=== PATIENT | female | born 1995 | race Caucasian/White ===

== ENCOUNTER → 2017-12-01 | Outpatient (CLI) | payer BC, OTHER ==
[~2017-12-01] MED LIST: ASPI-86 PO; AUGMENTIN; AUGMENTIN PO; CARV25TA PO; CEPH500C PO; FEXO-14 PO; FURO20TA4 PO; HYDR1CAP2 PO; IOHEXOL 350 MG/ML 100 ML (OMNIPAQUE 350) VIAL IV ONE; KRIL1CAP PO; LISI10TA2 PO; LORA0.5T PO; NS 250 ML (IVPB) BAG IV ONE
--- NOTE | 2017-12-01 13:56 | Diagnostic Imaging Report ---
PROCEDURE: CT chest with contrast only. TECHNIQUE: Multiple contiguous axial images were obtained through the chest after administration of intravenous contrast. INDICATION: Bronchiectasis, fluid in lung. COMPARISON: None. FINDINGS: Heart size is enlarged. There is rather prominent disproportionate left ventricular and to lesser degree left atrial enlargement. Patient is post sternotomy as well as some surgical changes at the level of the mitral valve. Left-sided AICD is present. This includes lead coursing over the posteroinferior ventricular apex superimposed over the diaphragm and within soft tissues of the left chest wall. No suggestion for pathologically enlarged mediastinal or hilar lymph nodes. No significant pericardial effusion. Small hiatal hernia. Lung rojas demonstrate no consolidating infiltrate. Emphysematous changes are present. Mild areas of peribronchial thickening are noted. No significant bronchiectatic change. No significant pleural effusion. Probable splenule anterior to the spleen in the left upper quadrant. Some degree of hepatic steatosis not excluded. The visualized osseous structures demonstrate no acute findings. IMPRESSION: 1. Negative for acute abnormality of the chest. 2. Cardiac enlargement with somewhat disproportionate left-sided chamber enlargement. 3. Emphysematous changes suggested about the lung parenchyma, prominent for the patient's age. If further assessment is desired, pulmonary function testing may be of additional benefit. Dictated by: Dictated on workstation # [id number]
== END ==
LOC: RAD 11:04
PROVIDERS: ATTEND Internal Medicine
DX: J43.9 Emphysema, unspecified (principal); I51.7 Cardiomegaly; J47.9 Bronchiectasis, uncomplicated
CPT/HCPCS: 71260

== ENCOUNTER → 2017-12-11 | Outpatient (CLI) | payer BC, OTHER ==
[~2017-12-11] MED LIST changes: -IOHEXOL 350 MG/ML 100 ML (OMNIPAQUE 350) VIAL IV ONE; -NS 250 ML (IVPB) BAG IV ONE; +RT-ALBUTEROL SULF 2.5 MG/3 ML PRE-MIX VIAL INH ONE
== END ==
LOC: RT 11:38
PROVIDERS: ATTEND Internal Medicine
DX: J40 Bronchitis, not specified as acute or chronic (principal); J42 Unspecified chronic bronchitis
CPT/HCPCS: 94060; 94726; 94729

== ENCOUNTER → 2018-01-09 | Outpatient (CLI) | payer OTHER ==
[~2018-01-09] MED LIST changes: -RT-ALBUTEROL SULF 2.5 MG/3 ML PRE-MIX VIAL INH ONE
[2018-01-09 12:04] LABS: ABG BASE EXCESS -1.7 MMOL/L (-2.5-2.5); ABG OXYGEN SATURATION 99 % (94-100); ABG PCO2 33 MMHG (35-45); ABG PH 7.44 (7.37-7.43); ABG PO2 107 MMHG (79-93); ALLENS TEST YES-POS; INSPIRED O2 ROOM AIR; PATIENT TEMP 98.1; VENTILATOR NO
== END ==
LOC: RT 11:25
PROVIDERS: ATTEND Nurse Practitioner Family
DX: J40 Bronchitis, not specified as acute or chronic (principal); I42.9 Cardiomyopathy, unspecified; F12.90 Cannabis use, unspecified, uncomplicated; G47.10 Hypersomnia, unspecified
CPT/HCPCS: 82805

== ENCOUNTER → 2018-01-24 | Outpatient (CLI) | payer OTHER ==
[~2018-01-24] MED LIST changes: +RT-ALBUTEROL SULF 2.5 MG/3 ML PRE-MIX VIAL INH ONE
== END ==
LOC: RT 11:36
PROVIDERS: ATTEND Nurse Practitioner Family
DX: J40 Bronchitis, not specified as acute or chronic (principal); I42.9 Cardiomyopathy, unspecified; F12.90 Cannabis use, unspecified, uncomplicated; G47.10 Hypersomnia, unspecified; R94.2 Abnormal results of pulmonary function studies
CPT/HCPCS: 94060; 94726; 94729

== ENCOUNTER 2018-02-03 21:00 | Outpatient (CLI) | payer OTHER ==
[~2018-02-03 21:00] MED LIST changes: -RT-ALBUTEROL SULF 2.5 MG/3 ML PRE-MIX VIAL INH ONE
== END 2018-02-04 06:40 | disposition home or self-care (01) ==
LOC: SLEEP 21:00
PROVIDERS: ATTEND Nurse Practitioner Family
DX: G47.10 Hypersomnia, unspecified (principal); R94.2 Abnormal results of pulmonary function studies; F12.90 Cannabis use, unspecified, uncomplicated; I42.9 Cardiomyopathy, unspecified; J40 Bronchitis, not specified as acute or chronic
CPT/HCPCS: 95810

== ENCOUNTER 2018-03-05 08:14 | Outpatient (RCR) | payer OTHER ==
[~2018-03-05] VITALS: Ht 160 cm; Wt 95.3 kg
[2018-03-05 08:22] VITALS: BP 118/55
--- NOTE | 2018-03-05 09:53 | Pulmonary Rehab Eval/Txmt Plan ---
Pulmonary Rehab Initial Eval Information Paper Evaluation Completed: No Pulmonary Rehab Treatment Plan Treatment P Treatment Periord: Initial Diagnosis Diagnosis: RLD Date: Mar 05, 2018 Barriers to Learning Barriers: None Assessment/Problems Exercise: Deconditioning, No Regular Exercise, Sedentary Type: AEROBIC Frequency: 2 X'S PER WEEK Duration: 1 HR CLASS; EXERCISE PER PT'S TOLERANCE Barriers to Exercise: UPPER BACK PAIN Initial MET Level: 2 Aerobic Exercise/Goals Freq: time per week minus [place]: 2 MET Level=: 2 Type: Arm Ergometry, Bike, Scifi/Nustep, Treadmill ALIYAH SPANN DO Mar 05, 2018 09:53
== END 2018-06-03 | disposition home or self-care (01) ==
LOC: PULM 08:14
PROVIDERS: ATTEND Nurse Practitioner Family
DX: J40 Bronchitis, not specified as acute or chronic (principal); R94.2 Abnormal results of pulmonary function studies; I42.9 Cardiomyopathy, unspecified; G47.10 Hypersomnia, unspecified

== ENCOUNTER → 2018-07-09 | Outpatient (CLI) | payer MEDICARE ==
[2018-07-09 15:59] LABS: HEMOGLOBIN 14.7 G/DL (11.5-16.0); MEAN PLATELET VOLUME 10.3 FL (7.4-10.4); RED CELL DISTRIBUTION WIDTH 12.2 % (10.0-14.5); WHITE BLOOD COUNT 10.5 10^3/uL (4.3-11.0)
[2018-07-09 16:19] LABS: ALANINE AMINOTRANSFERASE 39 U/L (0-55); ALBUMIN 4.3 GM/DL (3.2-4.5); ALKALINE PHOSPHATASE 63 U/L (40-136); BILIRUBIN,TOTAL 0.4 MG/DL (0.1-1.0); BUN/CREATININE RATIO 20; CALCIUM 9.7 MG/DL (8.5-10.1); CARBON DIOXIDE 18 MMOL/L (21-32); CHLORIDE 109 MMOL/L (98-107); CREATININE SERUM 0.87 MG/DL (0.60-1.30); GFR ESTIMATED > 60; GLUCOSE 86 MG/DL (70-105); SODIUM 139 MMOL/L (135-145); TOTAL PROTEIN 7.5 GM/DL (6.4-8.2)
--- NOTE | 2018-07-09 18:43 | Diagnostic Imaging Report ---
INDICATION: Pneumonia. EXAMINATION: PA view of the chest is obtained with comparison made to study of 09/05/2015. FINDINGS: Surgical changes in the mediastinum have remained stable. There has been exchange of left anterior chest wall pacemaker/defibrillator device. There is no evidence of pneumothorax. There is mild blunting of left costophrenic sulcus which could be due to pleural fluid or scarring. IMPRESSION: No evidence of complication from exchange of internal cardiac device. There is mild left pleural fluid or thickening. Dictated by: Dictated on workstation # [id number]
== END ==
LOC: RAD 15:40
PROVIDERS: ATTEND Internal Medicine
DX: J18.9 Pneumonia, unspecified organism (principal); Z98.890 Other specified postprocedural states
CPT/HCPCS: 36415; 71045; 80053; 85027; 85652; 86738

== ENCOUNTER → 2020-03-05 | Outpatient (CLI) | payer MEDICARE ==
--- NOTE | 2020-03-05 14:40 | Diagnostic Imaging Report ---
INDICATION: Shortness of breath, cardiomyopathy. COMPARISON: 07/09/2018. TECHNIQUE: 2 radiographs of the chest dated March 05, 2020. FINDINGS: Postsurgical changes of a median sternotomy and prosthetic cardiac valve are again identified. Pacer device is again identified with the battery pack overlying the left chest, appearing similar to the prior examination. The cardiac silhouette is enlarged, though stable from the prior exam. Mild central pulmonary vascular congestion. Mild perihilar opacities, right greater than left, are present. No significant pleural effusion. No pneumothorax. No acute osseous abnormality. IMPRESSION: 1. Persistent cardiomegaly with minimal central pulmonary vascular congestion. 2. Mild perihilar edema versus infiltrate. 3. Stable postsurgical changes. Dictated by: Dictated on workstation # [id number]
== END ==
LOC: RAD 13:51
PROVIDERS: ATTEND Nurse Practitioner Family
DX: I51.7 Cardiomegaly (principal); J98.4 Other disorders of lung; I42.9 Cardiomyopathy, unspecified; Z98.890 Other specified postprocedural states
CPT/HCPCS: 71046

== ENCOUNTER 2020-05-25 16:25 | Outpatient (RCR) | payer MEDICARE ==
[2020-05-25 16:53] LABS: HEMOGLOBIN 12.8 g/dL (11.5-16.0); MEAN PLATELET VOLUME 11.2 fL (9.0-12.2); WHITE BLOOD COUNT 5.6 10^3/uL (4.3-11.0)
[2020-05-25 17:13] LABS: ALANINE AMINOTRANSFERASE 32 U/L (0-55); ALBUMIN 4.1 GM/DL (3.2-4.5); ALKALINE PHOSPHATASE 55 U/L (40-136); BILIRUBIN,TOTAL 0.6 MG/DL (0.1-1.0); BUN/CREATININE RATIO 11; CALCIUM 8.6 MG/DL (8.5-10.1); CARBON DIOXIDE 21 MMOL/L (21-32); CHLORIDE 109 MMOL/L (98-107); CREATININE SERUM 1.05 MG/DL (0.60-1.30); GFR ESTIMATED > 60; GLUCOSE 116 MG/DL (70-105); POTASSIUM 3.5 MMOL/L (3.6-5.0); SODIUM 142 MMOL/L (135-145); TOTAL PROTEIN 6.8 GM/DL (6.4-8.2)
--- NOTE | 2020-05-25 17:19 | Diagnostic Imaging Report ---
EXAMINATION: Chest 2 view HISTORY: Pneumonia COMPARISON: 01/03/2021 FINDINGS: Left subclavian pacemaker is present. Median sternotomy wires are aligned. Mitral annuloplasty ring is present. Heart is mildly enlarged. No pleural effusion or pneumothorax. No edema or pneumonia. IMPRESSION: 1. Mildly enlarged heart, clear lungs. Dictated by: Dictated on workstation # [id number]
== END 2020-08-23 | disposition home or self-care (01) ==
LOC: RAD 16:25 → EDSTATUS 16:30 → RAD 16:30
PROVIDERS: ATTEND Nurse Practitioner Family
DX: J15.9 Unspecified bacterial pneumonia (principal); I51.7 Cardiomegaly
CPT/HCPCS: 36415; 71046; 80053; 83880; 85027; 86738; 87070; 87205

== ENCOUNTER → 2020-07-15 | Outpatient (CLI) | payer MEDICARE ==
[2020-07-15 14:32] LABS: BASOPHILS % (AUTO) 1 % (0-10); EOSINOPHILS # (AUTO) 0.2 10^3/uL (0.0-0.3); EOSINOPHILS % (AUTO) 2 % (0-10); HEMATOCRIT 37 % (35-52); HEMOGLOBIN 12.4 g/dL (11.5-16.0); LYMPHOCYTES # (AUTO) 1.4 X 10^3 (1.0-4.0); LYMPHOCYTES % (AUTO) 17 % (12-44); MEAN CORPUSCULAR HEMOGLOBIN 30 pg (25-34); MEAN CORPUSCULAR HGB CONC 33 g/dL (32-36); MEAN CORPUSCULAR VOLUME 91 fL (80-99); MEAN PLATELET VOLUME 9.9 fL (9.0-12.2); MONOCYTES # (AUTO) 0.4 X 10^3 (0.0-1.0); MONOCYTES % (AUTO) 5 % (0-12); NEUTROPHILS # (AUTO) 6.2 X 10^3 (1.8-7.8); NEUTROPHILS % (AUTO) 75 % (42-75); PLATELET COUNT 254 10^3/uL (130-400); WHITE BLOOD COUNT 8.2 10^3/uL (4.3-11.0)
[2020-07-15 14:44] LABS: ALBUMIN 4.2 GM/DL (3.2-4.5)
[2020-07-15 14:45] LABS: CHLORIDE 106 MMOL/L (98-107); POTASSIUM 4.2 MMOL/L (3.6-5.0); SODIUM 140 MMOL/L (135-145)
[2020-07-15 14:46] LABS: CALCIUM 9.4 MG/DL (8.5-10.1)
[2020-07-15 14:47] LABS: GLUCOSE 87 MG/DL (70-105); TOTAL PROTEIN 6.8 GM/DL (6.4-8.2)
[2020-07-15 14:48] LABS: CARBON DIOXIDE 25 MMOL/L (21-32)
[2020-07-15 14:49] LABS: BILIRUBIN,TOTAL 1.5 MG/DL (0.1-1.0)
[2020-07-15 14:50] LABS: ALKALINE PHOSPHATASE 52 U/L (40-136)
[2020-07-15 14:51] LABS: CREATININE SERUM 1.04 MG/DL (0.60-1.30); GFR ESTIMATED > 60
[2020-07-15 14:52] LABS: BUN/CREATININE RATIO 13
--- NOTE | 2020-07-15 14:52 | Diagnostic Imaging Report ---
INDICATION: Aspiration pneumonia. TIME OF EXAM: 2:35 PM. COMPARISON: Correlation is made with the prior chest from 05/25/2020. FINDINGS: The heart is enlarged. There are changes of median sternotomy. A cardiac defibrillator is in place. No infiltrates are detected. The lungs appear clear. There is no effusion or pneumothorax. IMPRESSION: No acute cardiopulmonary process is detected. Dictated by: Dictated on workstation # [id number]
[2020-07-15 14:53] LABS: ALANINE AMINOTRANSFERASE 25 U/L (0-55)
[2020-07-15 14:57] LABS: ERYTHROCYTE SEDIMENTATION RATE 19 MM/HR (0-20)
== END ==
LOC: RAD 14:05
PROVIDERS: ATTEND Nurse Practitioner Family
DX: J69.0 Pneumonitis due to inhalation of food and vomit (principal); I42.0 Dilated cardiomyopathy
CPT/HCPCS: 36415; 71046; 80053; 83880; 85025; 85379; 85652

== ENCOUNTER → 2023-01-10 | Outpatient (CLI) | payer MEDICARE, OTHER ==
--- NOTE | 2023-01-10 12:12 | Diagnostic Imaging Report ---
INDICATION: CADIOMYOPATHY, DDU COMPARISON: 07/15/2020 FINDINGS: Frontal and lateral views of the chest demonstrate mild cardiomegaly. Pulmonary vasculature is within normal limits. Left-sided AICD, sternotomy wires, postsurgical changes of previous cardiac valve repair are noted.. The lungs are clear. There are no signs of infiltrate, pleural effusions or pneumothoraces. The visualized osseous structures show no acute abnormalities. IMPRESSION: 1. Cardiomegaly, but no evidence of failure or focal infiltrate. Dictated by: Dictated on workstation # [id number]
== END ==
LOC: RAD 10:55
PROVIDERS: ATTEND Family Medicine
DX: I42.9 Cardiomyopathy, unspecified (principal); I51.7 Cardiomegaly
CPT/HCPCS: 71046

== ENCOUNTER → 2023-01-24 | Outpatient (CLI) | payer MEDICARE ==
--- NOTE | 2023-01-24 17:24 | Diagnostic Imaging Report ---
INDICATION: Chest congestion EXAMINATION: Two-view chest 01/24/2023 COMPARISON: 01/10/2023 FINDINGS: There is a pacemaker on left stable with sternotomy wires and heart valve unchanged. Cardiomegaly noted with pulmonary vasculature mildly congested. There are no infiltrates or effusions. No pneumothorax. IMPRESSION: 1. Vascular congestion. Dictated by: Dictated on workstation # [id number]
[2023-01-24 17:54] LABS: BASOPHILS # (AUTO) 0.1 10^3/uL (0.0-0.1); BASOPHILS % (AUTO) 1 % (0-10); EOSINOPHILS # (AUTO) 0.3 10^3/uL (0.0-0.3); EOSINOPHILS % (AUTO) 3 % (0-10); HEMATOCRIT 37 % (35-52); HEMOGLOBIN 12.6 g/dL (11.5-16.0); LYMPHOCYTES # (AUTO) 2.5 10^3/uL (1.0-4.0); LYMPHOCYTES % (AUTO) 25 % (12-44); MEAN CORPUSCULAR HEMOGLOBIN 31 pg (25-34); MEAN CORPUSCULAR HGB CONC 34 g/dL (32-36); MEAN CORPUSCULAR VOLUME 89 fL (80-99); MEAN PLATELET VOLUME 11.3 fL (9.0-12.2); MONOCYTES # (AUTO) 0.5 10^3/uL (0.0-1.0); MONOCYTES % (AUTO) 5 % (0-12); NEUTROPHILS # (AUTO) 6.7 10^3/uL (1.8-7.8); NEUTROPHILS % (AUTO) 67 % (42-75); PLATELET COUNT 288 10^3/uL (130-400); WHITE BLOOD COUNT 10.1 10^3/uL (4.3-11.0)
[2023-01-24 18:17] LABS: ERYTHROCYTE SEDIMENTATION RATE 31 MM/HR (0-20)
== END ==
LOC: RAD 16:57
PROVIDERS: ATTEND Nurse Practitioner Family
DX: J81.0 Acute pulmonary edema (principal)
CPT/HCPCS: 36415; 71046; 85025; 85652; 86738

== ENCOUNTER → 2023-01-30 | Outpatient (CLI) | payer MEDICARE ==
[2023-01-30 17:46] LABS: ALANINE AMINOTRANSFERASE 21 U/L (0-55); ALBUMIN 4.8 GM/DL (3.2-4.5); ALKALINE PHOSPHATASE 51 U/L (40-136); BUN/CREATININE RATIO 21; CARBON DIOXIDE 19 MMOL/L (21-32); CHLORIDE 108 MMOL/L (98-107); CREATININE SERUM 1.02 MG/DL (0.60-1.30); GFR ESTIMATED 77; GLUCOSE 90 MG/DL (70-105); MAGNESIUM 2.2 MG/DL (1.6-2.4); SODIUM 140 MMOL/L (135-145); TOTAL PROTEIN 8.2 GM/DL (6.4-8.2)
== END ==
LOC: LAB 17:03
PROVIDERS: ATTEND Nurse Practitioner Family
DX: R06.09 Other forms of dyspnea (principal); R89.1 Abnormal level of hormones in specimens from other organs, systems and tissues; R25.2 Cramp and spasm
CPT/HCPCS: 36415; 80053; 83735; 83880; 85652